=== PATIENT | female | born 1955 | race Caucasian/White ===

== ENCOUNTER → 2018-03-09 | Outpatient (CLI) | payer BC ==
--- NOTE | 2018-03-09 16:11 | KCIC ---
MR of the right shoulder Indication: Acute right shoulder pain, injury lifting weights a days ago. Technique: Standard multiplanar sequences are obtained. Findings: Artifact: Mild motion degradation Acromioclavicular joint:Intact. Rotator cuff: * Supraspinatus-infraspinatus tendon: Mild tendinosis * Subscapularis tendon: Tendinosis. * Muscle bulk: Mild atrophy * Subacromial subdeltoid bursa: No significant effusion. Fluid: No significant glenohumeral effusion. Glenohumeral cartilage: No acute chondral defect. Labrum: Tear of the posterior and the superior labrum. Tiny posterosuperior para labral cyst. Biceps tendon: Intact Bones: No lesion or acute fracture. Soft tissue: No acute findings. Impression: 1. Posterior and superior labral tear. 2. Rotator cuff tendinosis without measurable tear. Electronically signed by: Maciel Wilson MD (03/09/2018 4:08 PM) [id number]
== END | disposition home or self-care (01) ==
LOC: KCIC MRI 13:39
PROVIDERS: ATTEND Nurse Practitioner Family
DX: S43.431A Superior glenoid labrum lesion of right shoulder, initial encounter (principal); M62.511 Muscle wasting and atrophy, not elsewhere classified, right shoulder; X58.XXXA Exposure to other specified factors, initial encounter; Y93.89 Activity, other specified; Y92.89 Other specified places as the place of occurrence of the external cause; Y99.8 Other external cause status
CPT/HCPCS: 73221